=== PATIENT | female | born 1975 | race Caucasian/White ===

== ENCOUNTER 2018-02-28 17:11 | Emergency (ER) | payer BC, OTHER ==
[~2018-02-28] VITALS: Ht 170.2 cm; Wt 91.1 kg
[~2018-02-28 17:11] MED LIST: ACID CONTROL20 MG PO; ALBUTEROL SULF8.5 GM IH; AZITHROMYCIN500 M1 PO; BENADRYL25 MG PO; CAMILA0.35 MG PO; EXCEDRIN EXTRA1 EACH PO; FLINTSTONES1 EACH PO; IBUPROFEN800 MG PO; KEFLEX500 MG PO; NAPROXEN500 MG PO; NASONEX17 GM BOTH NARES; NOHOMEMEDS; PEN-VEE K,VEET500 MG PO; PEPCID20 MG PO; PERCOCET 5/31 TABLET PO; PRENATAL TABLE1 EAC3 PO; REGLAN5 MG PO; ZITHROMAX250 MG PO; ZOFRAN4 MG PO
[2018-02-28 17:47] VITALS: BP 141/71
== END 2018-02-28 19:10 | disposition left against medical advice (07) ==
LOC: EME 17:11
DX: L02.01 Cutaneous abscess of face (principal); K08.9 Disorder of teeth and supporting structures, unspecified; Z53.21 Procedure and treatment not carried out due to patient leaving prior to being seen by health care provider